=== PATIENT | male | born 1980 | race Caucasian/White ===

== ENCOUNTER → 2019-11-19 | Emergency (ER) | payer OTHER ==
[~2019-11-19] VITALS: Ht 182.9 cm; Wt 113.3 kg
[2019-11-19 03:08] VITALS: BP 181/85
== END ==
LOC: ER 03:06
DX: Z02.89 Encounter for other administrative examinations (principal); F17.200 Nicotine dependence, unspecified, uncomplicated; V49.9XXA Car occupant (driver) (passenger) injured in unspecified traffic accident, initial encounter; Y93.89 Activity, other specified; Y92.488 Other paved roadways as the place of occurrence of the external cause; Y99.8 Other external cause status
CPT/HCPCS: 99283